=== PATIENT | male | born 1995 | race Two or more races ===

== ENCOUNTER 2018-02-06 19:03 | Emergency (ER) | payer OTHER ==
[~2018-02-06] VITALS: Ht 175.3 cm; Wt 104.5 kg
[2018-02-06 19:29] VITALS: BP 144/85
== END 2018-02-06 21:51 | disposition home or self-care (01) ==
LOC: ED 21:00
DX: H10.211 Acute toxic conjunctivitis, right eye (principal)
CPT/HCPCS: 99283